=== PATIENT | male | born 1980 | race Caucasian/White ===

== ENCOUNTER 2017-03-08 08:44 | Day surgery (SDC) | payer BC ==
[~2017-03-08] VITALS: Ht 172.7 cm; Wt 95.4 kg
[~2017-03-08 08:44] MED LIST: ATENOLOL50 MG PO; BENAZEPRIL HCL40 MG PO; BP MED; DILAUDID2 MG PO; FENOFIBRATE160 M1 PO; FLOMAX0.4 MG PO; LANSOPRAZOLE30 MG PO; LOTENSIN40 MG PO; MOTRIN800 MG PO; NOHOMEMEDS; NUCYNTA50 MG PO; PERCOCET 5/31 TABLET PO; PRILOSEC OTC20 MG PO; TENORMIN50 MG PO; TORADOL10 MG PO; ZOFRAN ODT4 MG PO; ZOFRAN4 MG PO
[2017-03-08 09:19] VITALS: BP 142/93
[2017-03-08 13:25] VITALS: BP 124/87
[2017-03-08 14:20] VITALS: BP 147/90
== END 2017-03-08 14:30 | disposition home or self-care (01) ==
LOC: SDC 08:44
PROVIDERS: Urology
DX: N20.1 Calculus of ureter (principal); N13.5 Crossing vessel and stricture of ureter without hydronephrosis; I10 Essential (primary) hypertension; K21.9 Gastro-esophageal reflux disease without esophagitis; E78.5 Hyperlipidemia, unspecified
CPT/HCPCS: 74000; 82365 90; 93005; J0690; J1100; J1170; J1885; J2175; J2250; J2405; J3010; J7050; Q0175